=== PATIENT | female | born 1990 | race Caucasian/White ===

== ENCOUNTER 2020-07-27 10:11 | Day surgery (SDC) | payer OTHER ==
[2020-07-22 11:31] LABS: Mean Corpuscular HGB CONC 31.3 g/dL (32.0-36.0); Mean Corpuscular Hemoglobin 27.2 pg (27.0-33.0); Mean Corpuscular Volume 86.8 fl (81.6-98.3); Mean Platelet Volume 11.6 fl (7.4-10.4); Platelet Count 190 10x3/uL (150-450); RBC Distribution Width 13.2 % (11.5-14.5); Red Blood Cell (RBC) Count 4.41 10x6/uL (3.90-5.03); White Blood Cell (WBC) Count 6.3 10x3/uL (3.5-10.5)
[2020-07-22 11:39] LABS: BHCG - Serum Negative (NEGATIVE); Pregs Control Background? CLEAR/WHITE (CLR/WHITE); Pregs Control Bar Appear? YES (CONTROL BAR)
[2020-07-23 01:24] LABS: SARS-CoV-2 PCR by NAA Not Detected (NotDetected)
[2020-07-26 09:36] VITALS: BMI 23.3
[~2020-07-27 10:11] MED LIST: Ferric Subsulfate (ASTRINGYN) 8 GM VIAL ONE
[2020-07-27] MEDS ORDERED: Famotidine/PF 20 mg/2ml Vial ONE (12:10)
[2020-07-27] MEDS ORDERED: Midazolam HCl 2 mg/2 ml Vial ONE ×2 (12:10→12:29)
[2020-07-27] MEDS ORDERED: Scopolamine 1.5 mg/72 hour Patch ONE (12:10)
[2020-07-27] MEDS ORDERED: Lidocaine 1% MPF 2 ML VIAL ONE (12:17)
[2020-07-27] MEDS ORDERED: Ketorolac Tromethamine 30 MG/ML VIAL ONE (12:29)
[2020-07-27] MEDS ORDERED: PROPOFOL 20 ML ONE (12:29)
[2020-07-27] MEDS ORDERED: Fentanyl 100 MCG/2 ML VIAL ONE (12:29)
[2020-07-27] MEDS ORDERED: Ondansetron PF 4 MG/2 ML Vial ONE (12:29)
[2020-07-27] MEDS ORDERED: Lidocaine 1% PF 5 ML VIAL ONE (12:29)
[2020-07-27] MEDS ORDERED: Dexamethasone 20 MG/5 ML VIAL ONE (12:29)
== END 2020-07-27 14:40 | disposition home or self-care (01) ==
LOC: CSHSDC 10:11
PROVIDERS: ATTEND Obstetrics & Gynecology
PROC: 0UBC7ZX Excision of Cervix, Via Natural or Artificial Opening, Diagnostic (ICD-10-PCS; principal; 2020-07-27)
DX: D06.1 Carcinoma in situ of exocervix (principal); K21.9 Gastro-esophageal reflux disease without esophagitis; E03.9 Hypothyroidism, unspecified; Z88.8 Allergy status to other drugs, medicaments and biological substances; Z91.048 Other nonmedicinal substance allergy status; Z20.822 Contact with and (suspected) exposure to COVID-19
CPT/HCPCS: 84703; 85027; 86850; 86900; 86901; 87635; 88307; J0690; J1100; J1885; J2250; J2405; J2704; J3010; S0028; U0003; U0005

== ENCOUNTER 2022-12-19 10:01 | Outpatient (CLI) | payer BC | END 2022-12-19 10:02 | disposition home or self-care (01) | LOC: CSHLAB 10:01 | PROVIDERS: ATTEND Obstetrics & Gynecology | DX: Z01.812 Encounter for preprocedural laboratory examination (principal); O34.219 Maternal care for unspecified type scar from previous cesarean delivery; Z53.9 Procedure and treatment not carried out, unspecified reason | CPT/HCPCS: 85014; 85018; 85049; 86780; 86850; 86900; 86901; 87340; 87389 ==

== ENCOUNTER 2022-12-20 09:30 | Inpatient (IN) | payer BC ==
[2022-12-19 11:25] LABS: Hematocrit 31.7 % (34.9-44.5); Hemoglobin 9.8 g/dL (12.0-15.5); Platelet Count 215 10x3/uL (150-450)
[2022-12-19 11:52] LABS: HBSAg Index 0.16 S/CO (0-0.99); HIV (1/2) Antibody/Antigen Non-Reactive (NonReactive); HIV 1/2 INDEX 0.11 S/CO (<1.00); Hep B Surf Ag Non-Reactive S/CO (NonReactive); Syphilis Antibody Nonreactive (Nonreactive); Syphilis Antibody Index 0.03 S/CO (<1.00 Non-Reactive)
[~2022-12-20 09:30] MED LIST changes: +Bicitra 30 ML UDCUP PO PRN; +CEFAZOLIN 2 GM in Sodium Chloride 0.9% 100 ML IVPB SCH; +Carboprost 250 MCG/ML AMP IM PRN; +Diphenoxylate HCl/Atropine Tablet PO PRN; +Famotidine/PF 20 mg/2ml Vial SLOW IVP PRN; -Ferric Subsulfate (ASTRINGYN) 8 GM VIAL ONE; +Methylergonovine 0.2 MG/ML VIAL IM PRN; +Misoprostol 200 MCG TAB PR PRN; +NS w/ Oxytocin 30 units 500 ML IV SCH; +Ondansetron PF 4 MG/2 ML Vial IVP PRN; +Tranexamic Acid 1,000 MG/10 ML VIAL IVP PRN; +hydrALAZINE 20 MG/ML VIAL SLOW IVP PRN
[2022-12-20] MEDS: Lactated Ringer's 1,000 ML IV SCH ×2 (10:52→11:39)
[2022-12-20 11:27] VITALS: BMI 29.7
[2022-12-20] MEDS ORDERED: Fentanyl 50 MCG/1 ML VIAL SLOW IVP PRN (11:44)
[2022-12-20] MEDS ORDERED: Meperidine HCl/PF 25 MG/ML VIAL SLOW IVP PRN (11:44)
[2022-12-20] MEDS ORDERED: Ondansetron HCl/PF 4 MG/2 ML Vial IVP PRN (11:44)
[2022-12-20] MEDS ORDERED: Ketorolac Tromethamine 30 MG/ML VIAL IVP SCH ×2 (11:45→18:00)
[2022-12-20] MEDS ORDERED: NS w/ Oxytocin 30 units 500 ML IV SCH (15:53)
[2022-12-20] MEDS ORDERED: Varicella virus, LIVE 0.5 ML VIAL SC ONE (15:53)
[2022-12-20] MEDS ORDERED: Methylergonovine 0.2 MG/ML VIAL IM PRN (15:53)
[2022-12-20] MEDS ORDERED: Boostrix 0.5 ML (Tdap) VIAL (>/=7 yrs of age) IM ONE (15:53)
[2022-12-20] MEDS ORDERED: Misoprostol 200 MCG TAB PR PRN (15:53)
[2022-12-20] MEDS ORDERED: Zolpidem Tartrate 5 MG TAB PO PRN (15:53)
[2022-12-20] MEDS ORDERED: Ondansetron PF 4 MG/2 ML Vial IVP PRN (15:53)
[2022-12-20] MEDS ORDERED: HYDROcodone/Acetaminophen 5/325 mg Tablet PO PRN ×2 (15:53)
[2022-12-20] MEDS ORDERED: hydrALAZINE 20 MG/ML VIAL SLOW IVP PRN (15:53)
[2022-12-20] MEDS ORDERED: Measles/Mumps/Rubella 10 MCG/0.5 ML VIAL SC ONE (15:53)
[2022-12-20] MEDS ORDERED: Lanolin Ointment 7 GM TUBE TOP PRN (15:53)
[2022-12-20] MEDS ORDERED: diphenhydrAMINE 25 MG CAP PO PRN (15:53)
[2022-12-20] MEDS: Docusate 100 MG CAP PO SCH (20:42)
[2022-12-20] MEDS: Ferrous Sulfate 325 MG TAB PO SCH (20:42)
[2022-12-20] MEDS ORDERED: Ibuprofen 800 MG TAB PO SCH (22:00)
[2022-12-21] MEDS ORDERED: Naloxone HCl 0.4 mg/ml Vial IV PRN (00:32)
[2022-12-21] MEDS ORDERED: Naloxone HCl 0.4 mg/ml Vial IVP PRN ×2 (00:32)
[2022-12-21] MEDS ORDERED: diphenhydrAMINE 50 MG/ML VIAL IVP PRN (00:32)
[2022-12-21] MEDS ORDERED: Moisturizing Cream (Eucerin) 113 GM JAR TOP PRN (00:32)
[2022-12-21] MEDS ORDERED: Communication Order-Pharmacy FS SCH (00:45)
[2022-12-21] MEDS: Ketorolac Tromethamine 30 MG/ML VIAL IVP PRN ×2 (00:54→08:19)
[2022-12-21 03:55] LABS: Hematocrit 28.2 % (34.9-44.5); Hemoglobin 8.7 g/dL (12.0-15.5); Mean Corpuscular HGB CONC 30.9 g/dL (32.0-36.0); Mean Corpuscular Hemoglobin 24.4 pg (27.0-33.0); Mean Platelet Volume 11.8 fl (7.4-10.4); Platelet Count 195 10x3/uL (150-450); RBC Distribution Width 14.3 % (11.5-14.5); Red Blood Cell (RBC) Count 3.57 10x6/uL (3.90-5.03); White Blood Cell (WBC) Count 13.1 10x3/uL (3.5-10.5)
[2022-12-21] MEDS ORDERED: Zolpidem Tartrate 5 MG TAB PO PRN ×2 (04:19→12:45)
[2022-12-21] MEDS ORDERED: HYDROcodone/Acetaminophen 5/325 mg Tablet PO PRN ×3 (04:19→12:45)
[2022-12-21] MEDS: HYDROcodone/Acetaminophen 5/325 mg Tablet PO PRN ×5 (04:29→22:00)
[2022-12-21] MEDS: Ondansetron PF 4 MG/2 ML Vial IVP PRN ×2 (04:30→09:55)
[2022-12-21] MEDS: Simethicone Chewable 80 MG TAB PO PRN ×4 (05:56→17:52)
[2022-12-21] MEDS: Ferrous Sulfate 325 MG TAB PO SCH ×2 (08:18→21:59)
[2022-12-21] MEDS: Docusate 100 MG CAP PO SCH ×2 (08:18→21:59)
[2022-12-21] MEDS: Prenatal Vitamin 1 TAB PO SCH (08:18)
[2022-12-21] MEDS: Ondansetron ODT 4 MG TAB PO PRN ×2 (13:54→17:52)
[2022-12-22] MEDS: Ondansetron ODT 4 MG TAB PO PRN (04:07)
[2022-12-22] MEDS: HYDROcodone/Acetaminophen 5/325 mg Tablet PO PRN ×3 (04:07→13:18)
[2022-12-22] MEDS: Ibuprofen 800 MG TAB PO SCH ×2 (05:11→13:17)
[2022-12-22] MEDS: Prenatal Vitamin 1 TAB PO SCH (08:45)
[2022-12-22] MEDS: Docusate 100 MG CAP PO SCH (08:45)
[2022-12-22] MEDS: Ferrous Sulfate 325 MG TAB PO SCH (08:45)
[2022-12-22 11:19] VITALS: BP 157/94; TEMP 98
== END 2022-12-22 13:55 | disposition home or self-care (01) | DRG 788 ==
LOC: CSHLD 09:30 → CSHPP 15:15
PROVIDERS: ADMIT Obstetrics & Gynecology; ATTEND Obstetrics & Gynecology
PROC: 10D00Z1 Extraction of Products of Conception, Low, Open Approach (ICD-10-PCS; principal; 2022-12-20)
PROC: 3E033VJ Introduction of Other Hormone into Peripheral Vein, Percutaneous Approach (ICD-10-PCS; 2022-12-20)
DX: O24.429 Gestational diabetes mellitus in childbirth, unspecified control (principal); O13.4 Gestational [pregnancy-induced] hypertension without significant proteinuria, complicating childbirth; O34.211 Maternal care for low transverse scar from previous cesarean delivery; Z3A.37 37 weeks gestation of pregnancy; Z37.0 Single live birth
CPT/HCPCS: 36415; 51702; 85014; 85018; 85027; 85049; 86780; 86850; 86900; 86901; 87340; 87389; J1885; J2405; J3490; J7120; Q0162; S0028